=== PATIENT | male | born 1980 | race Two or more races ===

== ENCOUNTER 2024-06-04 11:35 | Emergency (ER) | payer OTHER ==
[~2024-06-04] VITALS: Ht 175.3 cm; Wt 102.8 kg
[2024-06-04 12:07] VITALS: BP 128/93; PULSE 77; RESP 19; TEMP 97.5; O2SAT 98
--- NOTE | 2024-06-04 12:44 | ED.PDOC ---
Musculoskeletal HPI Comments A 44 YEAR OLD MALE PRESENTS TO THE ED WITH CHIEF COMPLAINT OF THIGH PAIN. 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 PATIENT RELAYS THAT SINCE THEN HE HAS BEEN UNABLE TO BEND DOWN WITHOUT PAIN IN THAT SAME AREA. PATIENT STATES HE IS CONCERNED HE MAY HAVE TORE HIS HAMSTRING. PATIENT DENIES ANY NUMBNESS, WEAKNESS, BACK PAIN OR FURTHER INJURY. Chief Complaint: Lower Extremity Time Seen by MD: 12:41 Reviewed Notes: Nurses Notes, Medications, Allergies Allergies: Coded Allergies: NO KNOWN ALLERGIES (Unverified , 06/04/24) Information Source: Patient Mode of Arrival: Ambulatory Location: Right Extremity Location: Thigh Timing: Days Prehospital treatment: None Severity: Moderate Able to Move Extremity: Yes Bear Weight: Limited Pain: Moderate Mechanism: Hyperextension Circumstances: Work Related Onset of Symptoms: Spontaneous Symptoms: Pain DVT Risk Factors: NONE Last Tetanus: Unknown Associated signs and symptoms: Thigh pain Past Medical History PAST MEDICAL HISTORY: Denies Surgical History: Denies all surgeries Family History Family History: Reviewed,noncontributory to illness Social History Smoker: Non-Smoker Alcohol: Denies ETOH Use Drugs: Denies Drug Use Lives In: Home Constitutional: denies: chills, diaphoresis, fatigue, fever, malaise, sweats, weakness, others EENTM: denies: blurred vision, double vision, ear bleeding, ear discharge, ear drainage, ear pain, ear ringing, eye pain, eye redness, hearing loss, mouth pain, mouth swelling, nasal discharge, nose bleeding, nose congestion, nose pain, photophobia, tearing, throat pain, throat swelling, voice changes, others Respiratory: denies: cough, hemoptysis, orthopnea, SOB at rest, shortness of breath, SOB with excertion, stridor, wheezing, others Cardiovascular: denies: chest pain, dizzy spells, diaphoresis, Dyspnea on exertion, edema, irregular heart beat, left arm pain, lightheadedness, palpitations, PND, syncope, others Gastrointestinal: denies: abdomen distended, abdominal pain, blood streaked bowels, constipated, diarrhea, dysphagia, difficulty swallowing, hematemesis, melena, nausea, poor appetite, poor fluid intake, rectal bleeding, rectal pain, vomiting, others Genitourinary: denies: burning, dysuria, flank pain, frequency, hematuria, incontinence, penile discharge, penile sore, pain, testicle pain, testicle swelling, urgency, others Neurological: denies: dizziness, fainting, headache, left sided numbness, left sided weakness, numbness, paresthesia, pre-existing deficit, right sided numbness, right sided weakness, seizure, speech problems, tingling, tremors, weakness, others Musculoskeletal: reports: muscle pain, others (RIGHT POSTERIOR THIGH PAIN); denies: back pain, gout, joint pain, joint swelling, muscle stiffness, neck pain Integumetry: denies: bruises, change in color, change in hair/nails, dryness, laceration, lesions, lumps, rash, wounds, others Allergic/Immunocompromised: denies: Difficulty Healing, Frequent Infections, Hives, Itching, others Hematologic/Lymphatic: denies: anemia, blood clots, easy bleeding, easy bruising, swollen glands, others Endocrine: denies: excessive hunger, excessive sweating, excessive thirst, excessive urination, flushing, intolerance to cold, intolerance to heat, unexplained weight gain, unexplained weight loss, others Psychiatric: denies: anxiety, bipolar disorder, depression, hopeless, panic disorder, schizophrenia, sleepless, suicidal, others All Other Systems: Reviewed and Negative Physical Exam General Appearance: No Apparent Distress, Normal HEENT: Normal ENT Inspection, PERRL/EOMI Neck: Full Range of Motion, Non-Tender, Normal, Normal Inspection Respiratory: Chest Non-Tender, Lungs Clear, No Accessory Muscle Use, No Respiratory Distress, Normal Breath Sounds Cardiovascular: No Edema, No JVD, No Murmur, No Gallop, Normal Peripheral Pulses, Regular Rate/Rhythm Breast Exam: Deferred Gastrointestinal: No Organomegaly, Non Tender, No Pulsatile Mass, Normal Bowel Sounds, Soft Genitalia: Deferred Pelvic: Deferred Rectal: Deferred Extremities: Decreased range of motion (SLIGHTLY. ), No calf tenderness, Normal capillary refill, Normal inspection, No pedal edema, Tender (AND MUSCLE TIGHTNESS ON RIGHT POSTERIOR THIGH, NO BONY TENDERNESS, SWELLING AND DVT SIGNS. 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 Was a procedure done?: No Differential Diagnosis EXT Differential Diagnosis: Sprain, Strain X-Ray, Labs, Meds, VS Vital Signs Date Time Temp Pulse Resp B/P (MAP) Pulse Ox O2 Delivery O2 Flow Rate FiO2 06/04/24 12:07 97.5 77 19 128/93 (105) 98 97.5 06/04/24 12:07 77 19 98 Room Air 06/04/24 11:47 97.5 77 19 128/93 (105) 98 PATIENT: TERRY REALACCT: [id number]: [id number] : 1980 LOC: ER ROOM / BED: / AGE / SEX: 44 / M ADM STATUS: REG ER SERVICE [id number] ORDERING PHYSICIAN: KBOE DIAZ PROCEDURE(s): LUMB2 - LUMBAR SPINE 3 VIEW REASON: right buttock pain ORDER NUMBER(s): [id number], ACCESSION NUMBER(s): [id number] EXAM: XY LUMBAR SPINE 3 VIEW HISTORY: right buttock pain COMPARISON: None TECHNIQUE: AP and lateral views of the lumbar spine and spot lateral of the lumbosacral junction were performed. FINDINGS: No fracture or listhesis of the lumbar spine. No significant degenerative disc disease. There is mild rotatory lumbar levoscoliosis. IMPRESSION: No fracture or significant degenerative disc disease about the lumbar spine. ATED BY: TERRY KILPATRICK MD DICTATED DATE/TIME: 06/04/241255 SIGNED BY: TERRY KILPATRICK MD SIGNED DATE/TIME: 06/04/241255 X-Ray, Labs, Meds, VS Comment EXTERNAL MEDICAL RECORDS REVIEWED: [NONE] INDEPENDENT HISTORIANS: [NONE] SOCIAL DETERMINANTS OF HEALTH: [NONE] LABS ORDERED: NONE REVIEWED AND INTERPRETED RESULTS: L-SPINE XR IMAGING ORDERED: L-SPINE XR TREATMENTS ORDERED: PROCEDURES PERFORMED: NONE CRITICAL CARE TIME: NONE I HAVE DISCUSSED THE PATIENT WITH THE ATTENDING PHYSICIAN DR. BAILEY AND HE AGREES WITH THE PATIENT'S PLAN OF CARE AND DISPOSITION. BASED ON HISTORY OF PRESENT ILLNESS, AND PHYSICAL EXAM, PATIENT WILL BE DISCHARGED HOME. DISCUSSED PLAN FOR DISCHARGE HOME WITH RX []. MEDICATION WARNINGS GIVEN. SHARED DECISION MAKING: DISCUSSED WITH PATIENT THAT THEIR WORKUP WAS NORMAL. PATIENT INSTRUCTED TO FOLLOW UP WITH PRIMARY CARE PROVIDER IN 1-2 DAYS FOR RE- EVALUATION OF SYMPTOMS. PATIENT VERBALIZES UNDERSTANDING TO RETURN TO ED FOR NEW OR WORSENING SYMPTOMS OR IF FOLLOW UP WITH PCP CANNOT BE OBTAINED. PATIENT FEELS COMFORTABLE GOING HOME AT THIS TIME. ALL QUESTIONS ADDRESSED AT TIME OF DISCHARGE. 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 TAKE MEDICATIONS PRESCRIBED. RETURN TO ED FOR ANY NEW OR WORSENING SYMPTOMS. Written Prescriptions PT DECLINED PAIN MEDICATION AND RX. Discharged With: Self Critical Care Note Critical Care Time?: No Stability Stability form required: No Heart Score Heart Score: Heart Score Response (Comments) Value History N/A 0 EKG N/A 0 Age N/A 0 Risk Factors N/A 0 Troponin N/A 0 Total 0 I personally scribed for KOBE DIAZ ([email or web address]) on 06/04/24 at 12:44. Electronically submitted by Kalen Moreira ([email or web address]). I personally scribed for KOBE DIAZ ([email or web address]) on 06/04/24 at 12:45. Electronically submitted by Kalen Moreira ([email or web address]). KOBE DIAZ Jun 04, 2024 12:44
--- NOTE | 2024-06-04 12:58 | DVH ---
EXAM: XY LUMBAR SPINE 3 VIEW HISTORY: right buttock pain COMPARISON: None TECHNIQUE: AP and lateral views of the lumbar spine and spot lateral of the lumbosacral junction were performed. FINDINGS: No fracture or listhesis of the lumbar spine. No significant degenerative disc disease. There is mi ld rotatory lumbar levoscoliosis. IMPRESSION: No fracture or significant degenerative disc disease about the lumbar spine.
== END 2024-06-04 13:26 | disposition home or self-care (01) ==
LOC: ER 11:35
DX: S76.911A Strain of unspecified muscles, fascia and tendons at thigh level, right thigh, initial encounter (principal); X58.XXXA Exposure to other specified factors, initial encounter; Y93.89 Activity, other specified; Y92.69 Other specified industrial and construction area as the place of occurrence of the external cause; Y99.8 Other external cause status
CPT/HCPCS: 72100